=== PATIENT | female | born 1940 | race Caucasian/White ===

== ENCOUNTER 2017-03-27 09:48 | Inpatient (IN) | payer BC ==
[2017-02-26 12:26] VITALS: BMI 28.3
--- NOTE | 2017-03-16 13:19 | HP ---
Satellite [facility] - Chief Complaint Chief Complaint: right knee pain - Past Medical History Allergies/Adverse Reactions: Allergies Allergy/AdvReac Type Severity Reaction Status Date / Time No Known Allergies Allergy Verified 02/26/17 12:26 - Current Medications Current Medications: Home Medications Medication Instructions Recorded Cholecalciferol (Vitamin D3) 1,000 unit PO DAILY 02/26/17 [Vitamin D3 -] Collagen, Hydrolysate (Bovine) 1 tab PO DAILY 02/26/17 [Collagen Hydrolysate] Cyanocobalamin (Vitamin B-12) 2,500 mcg PO DAILY 02/26/17 [Vitamin B12] Levothyroxine [Synthroid -] 100 mcg PO DAILY 02/26/17 Losartan Potassium 50 mg PO HS 02/26/17 Lovastatin [Altoprev] 20 mg PO HS 02/26/17 Zolpidem Tartrate [Ambien] 5 mg PO HS 02/26/17 Satellite Physical Exam - Physical Examination General Appearance: Well Nourished, Well Developed, Alert & Oriented x3 ENT: Clear Lung: Normal air movement Heart: Regular rate & rhythm Extremities: Other (right knee- + swelling, + ttp medially, decr rom, nvi xrays show severe medial compartment djd) Neurological: Intact, Alert, Oriented Satellite Impression/Plan - Impression/Plan Impression: right knee medial djd Operative Procedure: right medial manasa ukr Date to be Performed: 03/20/17
[2017-03-27] MEDS ORDERED: CEFAZOLIN 1 GM/D5W 50 ML IVPB ONE (09:59)
[2017-03-27] MEDS ORDERED: GABAPENTIN 300 MG CAPSULE (FP) PO ONE (09:59)
[2017-03-27] MEDS ORDERED: ROPIVICAINE 0.2%/MORPH PF/KETOROLAC - 51ML DISP.SYRINGE IA ONE ×2 (09:59→13:30)
[2017-03-27] MEDS ORDERED: oxyCODONE HCL 10 MG SUSTAINED ACTING TABLET PO ONE (09:59)
[2017-03-27] MEDS ORDERED: TRANEXAMIC ACID 1000 MG/10 ML VIAL IVPUSH ONE (09:59)
[2017-03-27] MEDS ORDERED: CELECOXIB 200 MG CAPSULE PO ONE (09:59)
[2017-03-27] MEDS ORDERED: ePHEDrine SULFATE 50 MG/1 ML AMPULE ONE (11:26)
[2017-03-27] MEDS ORDERED: ceFAZolin SODIUM 1 GM VIAL ONE (11:33)
[2017-03-27] MEDS ORDERED: BUPIVACAINE HCL/PF (5 MG/ML) 30 ML VIAL IJ ONE (12:11)
[2017-03-27] MEDS ORDERED: DEXAMETHASONE SOD PHOSPHATE/PF 10 MG/ML SDV ONE (12:11)
[2017-03-27] MEDS ORDERED: MIDAZOLAM HCL 2 MG/2 ML SINGLE DOSE VIAL ONE (12:11)
[2017-03-27] MEDS ORDERED: LACTATED RINGERS SOLUTION 1,000 ML IV SCH ×2 (14:00→15:00)
[2017-03-27] MEDS ORDERED: ONDANSETRON 4 MG/2 ML VIAL IVPUSH PRN (14:00)
[2017-03-27] MEDS ORDERED: oxyCODONE HCL 5 MG TABLET PO PRN ×2 (14:02)
--- NOTE | 2017-03-27 14:40 | OP ---
Operative Note - Note: Operative Date: 03/27/17 Pre-Operative Diagnosis: right knee OA Operation: right knee medial Kamari Plasty, patellaplasty Implants: Kamari Armando Femur 2, Tibia 3, Poly 8mm Surgeon: Jaleel Lindsay Statistical Machine Mechanic: Joseph Cam Anesthesiologist/HAMMER DRIVER: Latoya Shine Anesthesia: General, Spinal Specimens Removed: bone, shavings Estimated Blood Loss (mls): 75 Drains, Volume Out (mls): 0 Blood Volume Replaced (mls): 0 Fluid Volume Replaced (mls): 700 Operative Report Dictated: Yes
[2017-03-27] MEDS ORDERED: ONDANSETRON 4 MG/2 ML VIAL IVPB PRN (14:47)
[2017-03-27] MEDS ORDERED: MAG HYDROX/AL HYDROX/SIMETH 30 ML UNIT-DOSE CUP PO PRN (14:47)
[2017-03-27] MEDS: ACETAMINOPHEN 325 MG TABLET (FP) PO SCH ×2 (15:40→23:20)
--- NOTE | 2017-03-27 18:09 | SPEC ---
DATE OF OPERATION: 03/27/2017 PREOPERATIVE DIAGNOSIS: Right knee medial compartment osteoarthritis. POSTOPERATIVE DIAGNOSIS: Right knee medial compartment osteoarthritis. PROCEDURE: Right medial MAKOplasty and patelloplasty with navigation. SURGEON: Cassidy Leggett MD POWER LINEMAN TECHNICIAN: JOHANNA Augustine ANESTHESIA: Spinal. DRAINS: None. COMPLICATIONS: None. BLOOD LOSS: About 75 mL. BLOOD GIVEN: None. FLUID REPLACEMENT: 700 mL TOTAL SURGICAL TIME: Approximately one hour. INDICATION FOR PROCEDURE: This patient is a 76-year-old female with a preoperative diagnosis of severe right knee medial compartment osteoarthritis. After understanding the potential risks, complications, alternatives and benefits of surgical versus nonsurgical treatment, the patient elected to undergo this procedure. DESCRIPTION OF PROCEDURE: The patient was brought to the operating room, peripheral IV placed, IV sedation given. Spinal anesthesia was induced. One gram of IV Ancef was given. Regional blocks were performed. LMA anesthesia was induced. The right lower extremity was prepped and draped in a sterile fashion. Case was begun by making a medial incision about 4 inches in length. Subcutaneous hemostasis was achieved with the Bovie cautery. Dissection was done down to the patella, the patella reticulum and medial patella retinacular incision with Bovie cautery. Arthrotomy was performed. The proximal medial femur and the proximal medial tibial plateau were exposed. The femoral and tibial check points were placed one handbreadth above the patella and 2 inches more than one handbreadth below the patella. I put in four Steinmann pins in the femoral and tibial arrays. We then used the Green probe to calibrate the medial malleolus and lateral malleolus, the femoral and tibial check points and then put the knee through circular range of motion. Once this was done, a Weitlaner retractor was placed into the incision, retracting the patella laterally. Using the Blue check point, we then used 40 points of calibration on the femur and 40 points of calibration on the tibia. Once this was done, we put the knee through a range of motion, eliminating the varus deformity, getting it to 3 degrees of varus from 9 and eliminating the external rotation deformity. We checked the knee at 0, 15, 30, 45, 60, 75, 90 and 120 degrees. We looked at the schematic diagram and the virtual Makoplasty prosthesis. The femoral tracking was excellent. Soft tissue balance was excellent in all planes and the medial and lateral ligaments were under the appropriate amount of stress. We were able to achieve full extension and full flexion without too much laxity or tightness. We then locked in the virtual prosthesis and converted to the bony resection. The Makoplasty robot was brought into place and additional calibration performed. Then, we took out the femoral component cartilage and bony resection, made the rodney and did the same with the tibia. The area was copiously irrigated and washed out. Some marginal osteophytes were removed. A posterior femoral osteophyte was removed. A pituitary was used to remove soft tissue, including what was remaining of the medial meniscus. The area was copiously irrigated and washed and overall looked quite good. We put in the trial components, which were a no. 2 femur, no. 3 tibia and no. 8 polyethylene. We put it through a range of motion and it seemed excellent in all planes with full extension, full flexion and excellent soft tissue balancing posteriorly, anteriorly, medially and laterally. The trial components were removed. The leg was elevated and the tourniquet applied. Thrombin-soaked Gelfoam was placed over the exposed cancellous bone. One bag of Simplex cement was removed. The real components were opened. They were pre-coated with the Simplex at the appropriate time. The Gelfoam was removed. The area was dried with a lap pad. First, the tibial tray was placed in the femoral component. Both were knocked into place with the primary impactor. The no. 8 polyethylene tibial tray was then placed in. We removed excess cement and got excellent compression in both flexion and extension. Once the cement was dry, we removed the tibial component and again cleaned the knee of any excess cement or bony debris. The area was copiously irrigated, washed out and checked again. There was no other cement to be removed. There were no other osteophytes that needed to be removed. There was excellent range of motion and no impingement anywhere. The area was irrigated and washed out again. The actual no. 8 polyethylene component was then placed and knocked into place with the impactor. Again, flexion, extension, medial and lateral laxity were checked, all of which seemed to be quite good, and closure was begun. The medial parapatellar retinacular incision was closed with no. 1 Tycron suture and 0 Vicryl suture was used to close the deep dermal layer. Final skin approximation was done with a running subcuticular 3-0 V-Loc suture. The area was then covered with Dermabond and waterproof dressing. The Steinmann pin holes were washed and closed with 3-0 nylon sutures. The area was then wrapped with an MIKE bandage. Tourniquet was taken down after a total time of about 18 minutes. There were no complications during the case. The patient was extubated and brought to the regular recovery room in stable condition. ADDENDUM: Before we cemented in the prosthesis, we did a medial patelloplasty where I removed osteophytes off the medial facet of the patella as well as the medial femoral condyle. Previously, these osteophytes were scraping against one another and after the patelloplasty, there was no contact. CASSIDY LEGGETT M.D. [id number]
[2017-03-27] MEDS: CEFAZOLIN 1 GM/D5W 50 ML IVPB SCH (20:23)
[2017-03-27] MEDS: SENNOSIDES/DOCUSATE COMBO (SENNA PLUS) TABLET (UD) PO SCH (21:13)
[2017-03-27] MEDS ORDERED: LOSARTAN POTASSIUM 50 MG TABLET (FP) PO SCH (22:00)
[2017-03-27] MEDS ORDERED: ZOLPIDEM TARTRATE 5 MG TABLET PO PRN (22:00)
[2017-03-27] MEDS ORDERED: ATORVASTATIN CA 10 MG TABLET (FP) PO SCH (22:00)
[2017-03-28 05:10] VITALS: BP 139/54; PULSE 60; TEMP 98
[2017-03-28] MEDS: CEFAZOLIN 1 GM/D5W 50 ML IVPB SCH (05:16)
[2017-03-28] MEDS: ACETAMINOPHEN 325 MG TABLET (FP) PO SCH (05:16)
[2017-03-28] MEDS ORDERED: LEVOTHYROXINE NA 100 MCG TABLET (FP) PO SCH (07:00)
[2017-03-28] MEDS ORDERED: ASPIRIN 325 MG TABLET PO SCH (08:00)
[2017-03-28] MEDS: SENNOSIDES/DOCUSATE COMBO (SENNA PLUS) TABLET (UD) PO SCH (09:19)
--- NOTE | 2017-03-28 09:47 | PN ---
Progress Note (short form) - Note Progress Note: Ortho Pt seen and examined s/p right medial manasa ukr pod #1 Selected Entries 03/28/17 04:00 Temperature 98.0 F Pulse Rate 60 Respiratory 18 Rate Blood Pressure 139/54 dressing, c/d/i, calf soft, nt rom 0-110, nvi a/p PT dvt ppx pain control d/c home today f/u in 1 week
--- NOTE | 2017-03-28 09:48 | DS ---
Physical Examination Vital Signs: Vital Signs Temperature 98.0 F 03/28/17 04:00 Pulse Rate 60 03/28/17 04:00 Respiratory Rate 18 03/28/17 04:00 Blood Pressure 139/54 03/28/17 04:00 O2 Sat by Pulse Oximetry (%) 97 03/28/17 05:09 Discharge Summary Reason For Visit: OSTEOARTHRITIS Procedures: Principal: s/p right medial manasa ukr Hospital Course: admitted for elective right medial manasa ukr, uneventful post-op, stable for d/c Condition: Good - Instructions Diet, Activity, Other Instructions: Post-op Instructions-Partial Knee Replacement Call the office for a follow-up appointment in 1 week - [phone] Aspirin 325mg daily for 6 weeks. Pain medication was sent into your pharmacy. Apply Graduated Compression Stockings (TEDs) to both lower extremities- remove daily for hygiene ONLY Apply Sequential Compression Device (SCDs) to both Lower extremities remove for PT and hygiene ONLY Apply cold packs to affected area for 15 minutes every 2 hours. Physical Therapist will come to your home for the first 5 days. You will be set up with outpatient PT at your first post-operative visit. Patient may ambulate as tolerated-encourage self care (at least every 2-3 hours while awake) with walker or cane Maintain Aquacel (waterproof) dressing to operative wound (will be removed by surgeon at first office visit) Shower with Aquacel dressing in place-if Aquacel integrity compromised, remove and apply dry sterile dressing and notify Orthopedist. DO NOT SHOWER unless Orthopedists approves without Aquacel dressing CONTACT THE OFFICE FOR ANY CHANGE IN YOUR CONDITION (for example-fever greater than 102 degrees,excessive bleeding from operative site, purulent drainage, severe swelling or pain) GO TO THE EMERGENCY ROOM IF THERE IS A MEDICAL EMERGENCY Knee Precautions: * Keep a rolled towel under affected heel while in bed or chair (to keep knee in extension) * Keep affected leg elevated except during mealtimes * DO NOT PLACE PILLOW UNDER AFFECTED KNEE * If you have any questions, please do not hesitate to call the office - [phone]. Referrals: Jaleel Lindsay MD [Staff Physician] - - Home Medications Comprehensive Discharge Medication List: Ambulatory Orders Cholecalciferol (Vitamin D3) [Vitamin D3 -] 1,000 unit PO DAILY 02/26/17 Collagen, Hydrolysate (Bovine) [Collagen Hydrolysate] 1 tab PO DAILY 02/26/17 Cyanocobalamin (Vitamin B-12) [Vitamin B12] 2,500 mcg PO DAILY 02/26/17 Levothyroxine [Synthroid -] 100 mcg PO DAILY 02/26/17 Losartan Potassium 50 mg PO HS 02/26/17 Lovastatin [Altoprev] 20 mg PO HS 02/26/17 Zolpidem Tartrate [Ambien] 5 mg PO HS 02/26/17 Hydrocodone/Acetaminophen [Gladstone 5-325 Tablet] 1 each PO Q6H PRN #50 tablet MDD 4 03/27/17
[2017-03-28] MEDS ORDERED: PANTOPRAZOLE 40 MG TABLET (FP) PO SCH (10:00)
[2017-03-28] MEDS ORDERED: MULTIVITAMINS (DAILY MVI) TABLET (FP) PO SCH (10:00)
== END 2017-03-28 11:12 | disposition home health service (06) | DRG 470 ==
LOC: FASU 09:48 → FM/S 09:49 → FASU 16:22 → FM/S 03-28 08:51 → FASU 03-28 08:51 → FM/S 03-28 09:26 → UNDOADMIN 03-28 09:26
PROVIDERS: ADMIT Orthopaedic Surgery; ATTEND Orthopaedic Surgery
PROC: 0QQD0ZZ Repair Right Patella, Open Approach (ICD-10-PCS; 2017-03-27)
PROC: 8E0Y0CZ Robotic Assisted Procedure of Lower Extremity, Open Approach (ICD-10-PCS; 2017-03-27)
PROC: 0SRC0L9 Replacement of Right Knee Joint with Medial Unicondylar Synthetic Substitute, Cemented, Open Approach (ICD-10-PCS; principal; 2017-03-27 13:12)
DX: M17.11 Unilateral primary osteoarthritis, right knee (principal); K21.9 Gastro-esophageal reflux disease without esophagitis; I10 Essential (primary) hypertension
CPT/HCPCS: 73560-TC-RT; 94760; 97116-GP; 97162-GP